=== PATIENT | male | born 1990 | race Two or more races ===

== ENCOUNTER → 2023-06-30 | Day surgery (SDC) | payer OTHER ==
[~2023-06-30] VITALS: Ht 160 cm; Wt 81.6 kg
[~2023-06-30] MED LIST: BUPIVACAINE HCL 50 ML ONE; DexAMETHasone SOD PHOS 10MG/1ML VIAL INJ ONE; GLYCOPYRROLATE 0.2 MG/ML 1ML VIAL ONE; KETOROLAC TROMETH 30 MG/ML 1ML VIAL ONE; LIDOCAINE 1% (LOCAL ANESTH.) PF 5ml SDV ONE; LIDOCAINE 1% INJ PF 5ML AMP ONE; ONDANSETRON HCL 4 MG/2 ML VIAL ONE; PROPOFOL 10 MG/ML 20 ML IV ONE; ceFAZolin 1GM/50ML 50 ML IV ONE; ceFAZolin 2 GM/D5W100ml 100 ML IV ONE
[2023-06-30 07:31] VITALS: TEMP 97.5; O2SAT 99
[2023-06-30 08:01] VITALS: BP 102/55; PULSE 77; RESP 14; O2SAT 96
== END | disposition home or self-care (01) ==
LOC: SUR 06:11 → EEVIPCON 07:00
PROVIDERS: ATTEND Orthopaedic Surgery Adult Reconstructive Orthopaedic Surgery
DX: S60.551A Superficial foreign body of right hand, initial encounter (principal); X58.XXXA Exposure to other specified factors, initial encounter; Y93.89 Activity, other specified; Y92.89 Other specified places as the place of occurrence of the external cause; Y99.8 Other external cause status
CPT/HCPCS: 20525; 88300; J1100; J1885; J2405; J2704; J3490